=== PATIENT | female | born 1970 | race Two or more races ===

== ENCOUNTER 2019-09-03 06:00 | Outpatient (CLI) | payer OTHER | END 2019-09-03 06:05 | disposition home or self-care (01) | LOC: LAB 06:00 → ADM 10:15 → CIR.AMB 09-07 10:15 → ADM 09-07 10:15 → EDSTATUS 09-07 10:15 → CIR.AMB 09-07 11:45 | PROVIDERS: ATTEND Otolaryngology | DX: D10.1 Benign neoplasm of tongue (principal); H68.103 Unspecified obstruction of Eustachian tube, bilateral; Z01.810 Encounter for preprocedural cardiovascular examination; Z01.812 Encounter for preprocedural laboratory examination; Z01.811 Encounter for preprocedural respiratory examination; Z20.828 Contact with and (suspected) exposure to other viral communicable diseases ==

== ENCOUNTER 2019-11-03 09:39 | Outpatient (CLI) | payer OTHER | END 2019-11-03 11:00 | disposition home or self-care (01) | LOC: OFIC 805 09:39 | PROVIDERS: ATTEND Otolaryngology | DX: K13.70 Unspecified lesions of oral mucosa (principal) ==

== ENCOUNTER 2020-02-15 08:52 | Outpatient (CLI) | payer OTHER | END 2020-02-15 09:05 | disposition home or self-care (01) | LOC: LAB 08:52 | PROVIDERS: ATTEND Radiology Diagnostic Radiology | DX: N20.0 Calculus of kidney (principal); N83.299 Other ovarian cyst, unspecified side ==